=== PATIENT | female | born 1955 | race Caucasian/White ===

== ENCOUNTER 2022-12-28 13:19 | Emergency (ER) | payer MEDICARE, OTHER, SELFPAY ==
[2022-12-28] VITALS (8 sets, daily range): BP systolic 181–201; BP diastolic 91–105; PULSE 68–98; RESP 11–21; TEMP 36.7; O2SAT 94–100; BMI 19.6
--- NOTE | 2022-12-28 13:31 | ED.GENADULT ---
HPI - General Adult General Chief complaint: Syncope Stated complaint: passed out this am/legs tingeling Time Seen by Provider: 12/28/22 13:25 History of Present Illness HPI narrative: 67-year-old female nonsmoker with history of cervical spinal issues and radicular symptoms affecting her right arm presents with many months of dizziness. She states that she presents today because she was dizzy earlier and felt like she almost passed out. She admits that she has a hard time at home and probably does not eat and drink enough. She states that she has a hard time preparing food for herself. She denies suicidal or homicidal ideations. She is in the process of trying to connect with the primary care provider and is hoping that she can see who her son sees (Yani). She denies any obvious positional element to her dizziness, no recent trauma or injury, no fever or chills. She denies nausea, vomiting or diarrhea. She denies chest pain or shortness of breath. She states this has been going on for quite some time, she denies any new meds or dietary change. Related Data Previous Rx's Medication Instructions Recorded amlodipine 5 mg tablet 5 mg PO DAILY #30 tabs 12/28/22 Review of Systems Review of Systems Narrative: GENERAL: Denies chills, fatigue, malaise, fever, sweats. HEENT: Denies sinus pain, ear pain, sore throat, difficulty swallowing, dizziness. RESPIRATORY: Denies dyspnea, cough, wheezing, hemoptysis, sputum. CARDIOVASCULAR: See HPI GASTROINTESTINAL: Denies nausea, vomiting, abdominal pain, diarrhea, constipation, melena. : Denies dysuria, frequency, incontinence, hematuria, urinary retention. MUSCULOSKELETAL: denies weakness, joint pain, or bony pain SKIN: Denies rash, skin lesions, or other NEUROLOGIC: See HPI PSYCHIATRIC: No concerning psychosocial issues. 12 point review of systems is negative except for those stated above Exam Narrative Exam Narrative: GENERAL: [67] year old patient appears stated age. Well-developed patient, in mild distress. Anxious, somewhat tearful HEAD: Atraumatic. Normocephalic. EYES: Pupils equal round and reactive. Extraocular motions intact. No scleral icterus. No injection or drainage. ENT: Nose without bleeding, purulent drainage. Throat without erythema, tonsillar hypertrophy or exudate. Airway patent. NECK: Trachea midline. Non tender CARDIOVASCULAR: Regular rate and rhythm without murmurs, gallops, or rubs. RESPIRATORY: Clear to auscultation. Breath sounds equal bilaterally. No wheezes, rales, or rhonchi. GASTROINTESTINAL: Abdomen soft, non-tender, nondistended. EXTREMITIES: No edema or joint tenderness. Using sling on right upper extremity which was given to her for cervical radicular symptoms BACK: Nontender without deformity or crepitance. No flank tenderness. NEURO: AOx3. SKIN: No rash or erythema of visible areas Initial Vital Signs Initial Vital Signs: Vital Signs Pulse Oximetry 96 12/28/22 13:26 Course Orders Ordered: Discontinued Medications Sodium Chloride (Normal Saline 0.9%) 1,000 mls @ 1,000 mls/hr IV BOLUS ONE Stop: 12/28/22 14:32 Last Infusion: 12/28/22 15:18 Dose: 0 mls/hr Documented By: Admin: 12/28/22 13:56 Dose: 1,000 mls/hr Documented By: RAIN Vital Signs Vital signs: Vital Signs - 8 hr 12/28/22 13:30 Temperature 98.0 F Pulse Rate 92 H Respiratory Rate 16 Blood Pressure 201/100 H Pulse Oximetry 99 Oxygen Delivery Method Room Air Medical Decision Making Lab Data 12/28/22 13:46 12/28/22 13:46 Labs: Lab Results 12/28/22 12/28/22 12/28/22 Range/Units 13:46 13:46 13:46 WBC 6.4 (4.5-11.0) X10^3/uL RBC 4.50 (4.0-5.2) X10^6/uL Hgb 15.1 (12.0-16.0) g/dL Hct 43.9 (36-46) % MCV 97.7 (80-100) fL MCH 33.7 (26-34) PG MCHC 34.5 (30-36) % RDW 12.8 (11.6-14.8) % Plt Count 244 (150-400) X10^3/uL Neut % (Auto) 51.6 (50-75) % Lymph % (Auto) 41.4 H (25-40) % [place] % (Auto) 5.5 (3-14) % Eos % (Auto) 0.9 L (2-4) % Baso % (Auto) 0.6 (0-2) % Neut # (Auto) 3300 (1111-3369) /uL Lymph # (Auto) 2600 (0278-1261) /uL [place] # (Auto) 300 (0-900) /uL Eos # (Auto) 100 (0-450) /uL Baso # (Auto) 0 (0-100) /uL PT 10.1 (10.1-12.7) SECONDS INR 0.9 (0.9-1.3) APTT 28 (26-36) SECONDS Sodium 132 L (137-145) mmol/L Potassium 3.9 (3.4-5.1) mmol/L Chloride 101 (98-107) mmol/L Carbon Dioxide 22 (22-32) mmol/L BUN 12 (7-17) mg/dL Creatinine 0.70 (0.52-1.04) mg/dL Estimated GFR > 60 (>60) mL/min BUN/Creatinine Ratio 17.1 (6-22) Glucose 104 (80-110) mg/dL Calcium 10.1 (8.4-10.2) mg/dL Magnesium 2.0 (1.6-2.3) mg/dL Total Bilirubin 0.8 (0.2-1.3) mg/dL AST 24 (14-36) IU/L ALT 17 (<35) IU/L Alkaline Phosphatase 74 (38-126) U/L Total Creatine Kinase 38 (30-135) U/L Troponin I < 0.012 (0.01-0.034) ng/mL Total Protein 7.7 (6.3-8.2) g/dL Albumin 4.9 (3.5-5.0) g/dL Globulin 2.8 (1.7-4.1) g/dL Albumin/Globulin Ratio 1.8 (1.0-2.8) Lipase 44 (23-300) U/L [facility] Narrative Medical decision making narrative: [67] year old patient presents with chronic dizziness and near syncopal episode Multiple etiologies for patient's symptoms considered including, but not limited to: [Electrolyte disturbance versus dehydration versus malnutrition versus hypertension versus stroke versus other] Prior Charts reviewed in our EMR Primary Historian: patient Labs reviewed and interpreted by myself: No leukocytosis or left shift, no signs of anemia, electrolytes, renal function, LFTs and troponin all within normal Imaging reviewed: CT of the head without acute findings, C-spine without acute findings, chest x-ray demonstrates no acute findings Multiple diagnoses considered as noted above. Her history and physical exam are reassuring. Labs with no significant abnormal findings requiring specific intervention. She does feel better after fluids, orthostatics normal. We did discuss the potential involvement of blood pressure, she states that her blood pressure tends to run quite high and she has not been on medications because she also has episodes where it runs low, sometimes as low as the 80s or 90s. She has no headache or blurred vision. No signs of stroke exam, no abnormal findings on imaging. Patient appropriate for discharge Patient's symptoms improved over duration of stay with above-stated therapies. Findings and discharge diagnosis discussed with patient/family followed by verbalization of understanding Return precautions discussed with patient/family whom verbalize understanding of diagnosis and plan Discharge Plan Departure Patient Disposition: Home Clinical Impression: Dizziness, Cervical radiculopathy Instructions: DI for Dizziness-Nonvertigo Activity Restrictions/Additional Instructions: *You have been diagnosed with [chronic dizziness, hypertension] *What to do: *Please continue to take your regular medications as directed. [ ] New medication prescriptions sent to your pharmacy: [ ] x ] New medication written as a paper prescription [ ] No new medications given *Please follow up with your primary care provider in 2-3 days, call for an appointment. Let them know you were seen in the Emergency Department and that we ask that you be seen in follow up. We will electronically transmit a record of today's note if your PCP is in our system *If you do not have a primary care provider please contact the [facility] Resource line at [phone]. They will ask some questions about your medical history and help get you set up with a doctor in the community. *Return to Emergency Department if you should have any new, worsening or concerning symptoms, such as [fever greater than 101 F, shaking chills, worsening pain, persistent vomiting or other bothersome symptoms] Prescriptions: New amlodipine 5 mg tablet 5 mg PO DAILY Qty: 30 0RF Referrals: Kendall Lomeli MD [Physician] - Miscellaneous,MD Rubens [Primary Care Provider] - Stand Alone Forms: Patient Portal/API
--- NOTE | 2022-12-28 13:33 | DI.CT.S_ITS ---
PROCEDURE: CT HEAD/BRAIN WO CON INDICATIONS: dizzy, tingling TECHNIQUE: Noncontrast 4.5 mm thick angled axial sections acquired from the foramen magnum to the vertex, with coronal and sagittal reformats. For radiation dose reduction, the following was used: automated exposure control, adjustment of mA and/or kV according to patient size. COMPARISON: None. FINDINGS: Image quality: Excellent. CSF spaces: Basal cisterns are patent. No extra-axial fluid collections. Ventricles are normal in size and shape. Brain: No midline shift. No intracranial masses or hemorrhage. Boyle-white matter interface is normal. Skull and face: Calvarium and visualized facial bones are intact, without suspicious lesions. Sinuses: Visualized sinuses and mastoids are clear. IMPRESSION: No acute intracranial abnormality. Approved by: Haresh Ramirez M.D. on 12/28/2022 at 14:09
--- NOTE | 2022-12-28 13:33 | DI.CT.S_ITS ---
PROCEDURE: CT CERVICAL SPINE WO CON INDICATIONS: neck pain, possible injury TECHNIQUE: Noncontrast 3 mm thick sections acquired from the skull base to the T4 level. Sagittal and coronal reformats were then constructed. For radiation dose reduction, the following was used: automated exposure control, adjustment of mA and/or kV according to patient size. COMPARISON: None. FINDINGS: Image quality: Excellent. Bones: No acute fractures or dislocations. Visualized superior ribs are intact. Mild to moderate multilevel degenerative disc disease and facet and uncovertebral joint hypertrophy. Soft tissues: Prevertebral soft tissues are normal in thickness. No paravertebral hematomas. No apical pneumothoraces. IMPRESSION: No acute cervical spine fracture or subluxation. [id number] multilevel spondylosis. Approved by: Haresh Ramirez M.D. on 12/28/2022 at 14:11
--- NOTE | 2022-12-28 13:34 | DI.RAD.S_ITS ---
PROCEDURE: XR CHEST 1V INDICATIONS: dizzy weak TECHNIQUE: One view of the chest was acquired. COMPARISON: None. FINDINGS: Surgical changes and devices: None. Lungs and pleura: Lungs are clear. No pleural effusions or pneumothorax. Mediastinum: Mediastinal contours appear normal. Heart size is normal. Bones and chest wall: No suspicious bony lesions. Overlying soft tissues appear unremarkable. IMPRESSION: No acute cardiopulmonary abnormality. Approved by: Haresh Ramirez M.D. on 12/28/2022 at 14:35
[2022-12-28 13:50] LABS: Add Manual Diff / Slide Review NO; Basophils Absolute Auto 0 /uL (0-100); Basophils Percent Auto 0.6 % (0-2); Eosinophils Absolute Auto 100 /uL (0-450); Eosinophils Percent Auto 0.9 % (2-4); Hematocrit 43.9 % (36-46); Hemoglobin 15.1 g/dL (12.0-16.0); Lymphocytes Absolute Auto 2600 /uL (1100-4500); Lymphocytes Percent Auto 41.4 % (25-40); Mean Corpuscular HGB Conc 34.5 % (30-36); Mean Corpuscular Hemoglobin 33.7 PG (26-34); Mean Corpuscular Volume 97.7 fL (80-100); Monocytes Absolute Auto 300 /uL (0-900); Monocytes Percent Auto 5.5 % (3-14); Neutrophils Absolute Auto 3300 /uL (1500-7000); Neutrophils Percent Auto 51.6 % (50-75); Platelet Count 244 X10^3/uL (150-400); Red Cell Distribution Width 12.8 % (11.6-14.8); White Blood Cell Count 6.4 X10^3/uL (4.5-11.0)
[2022-12-28] MEDS: SODIUM CHLORIDE 0.9% 1,000 ML 1000 ML IV (13:56)
[2022-12-28 13:57] LABS: INR 0.9 (0.9-1.3); Prothrombin Time 10.1 SECONDS (10.1-12.7)
[2022-12-28 13:59] LABS: PTT Partial Thromboplastin Tim 28 SECONDS (26-36)
[2022-12-28 14:00] LABS: Alanine Aminotransferase 17 IU/L (<35); Albumin 4.9 g/dL (3.5-5.0); Albumin Globulin Ratio 1.8 (1.0-2.8); Alkaline Phosphatase 74 U/L (38-126); Aspartate Aminotransferase 24 IU/L (14-36); BUN Creatinine Ratio 17.1 (6-22); Bilirubin Total 0.8 mg/dL (0.2-1.3); Blood Urea Nitrogen 12 mg/dL (7-17); Calcium 10.1 mg/dL (8.4-10.2); Carbon Dioxide 22 mmol/L (22-32); Chloride 101 mmol/L (98-107); Creatine Kinase 38 U/L (30-135); Estimated Glomerular Filt Rate > 60 mL/min (>60); Globulin 2.8 g/dL (1.7-4.1); Glucose 104 mg/dL (80-110); HEMOLYSIS < 15 (0-50); Lipase 44 U/L (23-300); Potassium 3.9 mmol/L (3.4-5.1); Sodium 132 mmol/L (137-145); Total Protein 7.7 g/dL (6.3-8.2)
[2022-12-28 14:12] LABS: Troponin I < 0.012 ng/mL (0.01-0.034)
--- NOTE | 2022-12-28 14:58 | CM.SWNOTE ---
ED LOOM FIXER Note LOOM FIXER receives consult from ED provider and RN due to concern for patient's anxiety and need for PCP. Patient is 67 y/o female who presents to the ED due to concern for dizziness and weakness. family resource management professor and ED provider endorse that patient presented with anxiety and inability to report chief complaint. LOOM FIXER enters room to meet with patient. Patient presents as A/Ox4, calm, cooperative and euthymic. Patient endorses she moved here to be close to family and recently moved from [place]. Patient endorses she had to move from [place] suddenly when her home sold quickly, patient endorses she currently rents a home in [place]. Patient endorses her son does not help her as much as she thought he would and is considering moving back to [place] to be close to her other son. Patient endorses she would have a good housing situation set up in [place]. Patient endorses prior to moving she had to cancel a neck/disc fusion procedure. Patient states she has not established PCP care here yet but her son sees Dr. Lomeli. Patient endorses concern that she felt weakness and dizziness when grocery shopping and states she is eating less fruits and vegetables lately. Patient endorses she takes vitamins to supplement this. LOOM FIXER offers to assist in establishing care with PCP for patient. Patient endorses she is going to decide soon if she going to move and may move back to [place]. LOOM FIXER provides phone number for patient if patient decides to stay in the area and needs a PCP. Patient denies any further needs from LOOM FIXER. Plan: patient to d/c to home upon medical clearance. Beth Unger, FIRST [employer]
--- NOTE | 2022-12-28 15:12 | PC.NURSE ---
Patient states she is sleeping on the floor in her living room of her rental, due to weird smells in the other room. Pt usually gets up slowly due to left knee previous injury, and right arm in a sling from cervical issues previously. When she stood she tried to steady herself on a chair and felt dizzy, room spinning, vision went black and she fell onto the carpeted floor. She denies hitting her head or being on blood thinners, denies new injuries from dizziness episode today. Pt states previously had similar symptoms to which she saw physical therapy for, however they did not treat her for the vertigo at physical therapy. She is being let go from her lease due to issues with the rental, causing a lot of stress for her. Pt moved here after her son encouraged her to move closer, however says he seems to be ignoring her. I encouraged patient to talk with her son about her concerns, patient did not respond to this. Patient feeling better now and denies currently feeling nauseous, stating it comes and goes.
== END 2022-12-28 15:35 | disposition home or self-care (01) ==
PROVIDERS: Emergency Provider Emergency Medicine
DX: R42 Dizziness and giddiness (principal); M54.12 Radiculopathy, cervical region
CPT/HCPCS: 36415; 70450; 71045; 72125; 80053; 82550; 83690; 83735; 84484; 85025; 85610; 85730; 93005; 96360; 99284

== ENCOUNTER → 2023-02-20 14:20 | Outpatient (CLI) | payer MEDICARE, OTHER, SELFPAY | PROVIDERS: Visit Provider Nurse Practitioner Family | DX: R30.0 Dysuria (principal) | CPT/HCPCS: 87086; 87210 ==

== ENCOUNTER 2024-03-06 13:57 | Emergency (ER) | payer MEDICARE, OTHER, SELFPAY ==
[2024-03-06] VITALS (8 sets, daily range): BP systolic 161–190; BP diastolic 86–114; PULSE 60–73; RESP 16–27; TEMP 37.3; O2SAT 96–98; BMI 18.8
--- NOTE | 2024-03-06 14:25 | DI.RAD.S_ITS ---
PROCEDURE: XR CHEST 1V INDICATIONS: chest pain TECHNIQUE: One view of the chest was acquired. COMPARISON: [facility], CR, XR CHEST 1V, 12/28/2022, 13:38. FINDINGS: Surgical changes and devices: None. Lungs and pleura: Lungs are clear. No pleural effusions or pneumothorax. Mediastinum: Mediastinal contours appear normal. Heart size is normal. Bones and chest wall: No suspicious bony lesions. Overlying soft tissues appear unremarkable. IMPRESSION: No acute cardiopulmonary abnormality is seen. Dictated by: Kristian Mcgovern M.D. on 03/06/2024 at 15:26 Approved by: Kristian Mcgovern M.D. on 03/06/2024 at 15:26
--- NOTE | 2024-03-06 15:32 | EKG_ITS ---
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
[2024-03-06 15:43] LABS: Add Manual Diff / Slide Review NO; Basophils Absolute Auto 0 /uL (0-100); Basophils Percent Auto 0.5 % (0-2); Eosinophils Absolute Auto 100 /uL (0-450); Eosinophils Percent Auto 1.2 % (2-4); Hematocrit 41.3 % (36-46); Hemoglobin 13.9 g/dL (12.0-16.0); Lymphocytes Absolute Auto 2100 /uL (1100-4500); Lymphocytes Percent Auto 37.5 % (25-40); Mean Corpuscular HGB Conc 33.6 % (30-36); Monocytes Absolute Auto 300 /uL (0-900); Monocytes Percent Auto 5.4 % (3-14); Neutrophils Absolute Auto 3100 /uL (1500-7000); Neutrophils Percent Auto 55.4 % (50-75); Platelet Count 243 X10^3/uL (150-400); Red Blood Cell Count 4.09 X10^6/uL (4.0-5.2); Red Cell Distribution Width 12.7 % (11.6-14.8); White Blood Cell Count 5.6 X10^3/uL (4.5-11.0)
[2024-03-06 15:45] LABS: Prothrombin Time 11.1 SECONDS (9.4-12.5)
[2024-03-06 15:47] LABS: PTT Partial Thromboplastin Tim 30 SECONDS (25.1-36.5)
[2024-03-06 15:49] LABS: Alanine Aminotransferase 21 IU/L (<35); Albumin 4.2 g/dL (3.5-5.0); Albumin Globulin Ratio 1.6 (1.0-2.8); Alkaline Phosphatase 62 U/L (38-126); Aspartate Aminotransferase 27 IU/L (14-36); BUN Creatinine Ratio 12.3 (6-22); Bilirubin Total 0.7 mg/dL (0.2-1.3); Blood Urea Nitrogen 8 mg/dL (7-17); Calcium 9.4 mg/dL (8.4-10.2); Carbon Dioxide 26 mmol/L (22-32); Chloride 100 mmol/L (98-107); Creatine Kinase 75 U/L (30-135); Estimated Glomerular Filt Rate > 60 mL/min (>60); Globulin 2.6 g/dL (1.7-4.1); Glucose 100 mg/dL (80-110); HEMOLYSIS < 15 (0-50); Lipase 38 U/L (23-300); Magnesium 1.8 mg/dL (1.6-2.3); Potassium 4.2 mmol/L (3.4-5.1); Sodium 131 mmol/L (137-145); Total Protein 6.8 g/dL (6.3-8.2)
[2024-03-06 16:01] LABS: NT-proBNP (BNP-Adult 18+) 510 pg/mL (<125); Troponin I < 0.012 ng/mL (0.01-0.034)
--- NOTE | 2024-03-06 19:18 | ED.ARRPALP ---
HPI - Arrhythmia/Palpitations General Chief Complaint: Arrhythmia/Palpitations Stated Complaint: BPM below 50 then rises to 108 walking, HBP Time Seen by Provider: 03/06/24 19:18 History of Present Illness HPI narrative: Patient is a 69-year-old female history of hypertension, syncope, comes into the ED for evaluation of weakness, low and high heart rate, she states that she has been having difficulty controlling her blood pressure with her emissions testing and repair technician therefore they have been changing a lot of her medications recently, states that she has doubled her carvedilol proximally 1 week ago and states that she is now noticing that her heart rate will be low then go high and it is well as increased weakness but denies any actual chest pain shortness of breath fever chills nausea vomiting abdominal pain or any other GI/ symptoms time. No trauma no falls. Related Data Previous Rx's Medication Instructions Recorded amlodipine 5 mg tablet 5 mg PO DAILY #30 tabs 12/28/22 Allergies Allergy/AdvReac Type Severity Reaction Status Date / Time No Known Drug Allergies Allergy Unverified 02/20/23 14:02 Review of Systems Review of Systems Narrative: General: Positive generalized weakness, Denies fever, chills, weight loss HEENT: Denies headache, eye drainage, eye irritation, head trauma, sore throat, voice change Cardiovascular: Denies any chest pain, palpitations, shortness of breath, tachycardia Respiratory: Denies any shortness of breath, cough, wheeze, stridor GI/: Denies any abdominal pain, nausea, vomiting, diarrhea, bright red blood per rectum, melanotic stools, urinary frequency, urinary retention, dysuria, hematuria MSK: Denies any joint pain, muscle pains, swelling Skin: Denies any rashes, lesions, discoloration Neuro: Denies any headache, lightheadedness, dizziness, fainting, weakness Psych: Denies SI/HI Patient History Social History Smoking Status: Never smoker Smoking Status: Never smoker Exam Narrative Exam Narrative: General: Cooperative, comfortable, well-developed, not in acute distress HEENT: Normocephalic, atraumatic, PERRLA, normal sclera, eyelids normal, Neck: Active full range of motion, atraumatic Chest: Normal to inspection, negative crepitus, no overlying erythema ecchymosis Respiratory: Normal respiratory effort, not in acute respiratory distress, clear to auscultation bilaterally negative cough, wheeze, tachypnea, rhonchi, rales Cardiology: Regular rate rhythm negative gallop, murmur, rubs GI/: Normal to inspection, soft, nonrigid, no tenderness to palpation, exam deferred MSK: Full range of active range of motion of all 4 extremities, atraumatic Skin: No rashes lesions noted Neuro: Alert awake oriented x3, moves all 4 extremities spontaneously, cranial nerves intact, able to answer all questions appropriately follows commands appropriately Psych: Cooperative, negative suicidal or homicidal ideations Initial Vital Signs Initial Vital Signs: Vital Signs Temperature 99.1 F 03/06/24 14:18 Pulse Rate 73 03/06/24 14:18 Respiratory Rate 16 03/06/24 14:18 Blood Pressure 183/106 H 03/06/24 14:18 Pulse Oximetry 97 03/06/24 14:18 Oxygen Delivery Method Room Air 03/06/24 14:18 Course Orders Ordered: ED Orders 03/06/24 14:25 XR chest 1V Stat EKG-12 Lead Stat 03/06/24 15:25 Complete Blood Count AUTO DIFF Stat Comprehensive Metabolic Panel Stat Lipase Stat Magnesium Stat NT-proBNP (BNP-Adult 18+) Stat PTT Partial Thromboplastin Saran Stat Prothrombin Time INR Stat Troponin & CK Cardiac Panel Stat Vital Signs Vital signs: Vital Signs - 8 hr 03/06/24 14:18 03/06/24 17:16 03/06/24 17:17 Temperature 99.1 F Pulse Rate 73 71 71 Respiratory Rate 16 Blood Pressure 183/106 H Pulse Oximetry 97 97 98 Oxygen Delivery Method Room Air 03/06/24 17:17 03/06/24 17:30 03/06/24 17:30 Temperature Pulse Rate 69 69 Respiratory Rate 27 H 20 Blood Pressure 190/114 H 176/97 H Pulse Oximetry 97 97 Oxygen Delivery Method Room Air Room Air 03/06/24 17:30 03/06/24 18:00 03/06/24 18:00 Temperature Pulse Rate 67 Respiratory Rate 27 H Blood Pressure 176/97 H 161/86 H Pulse Oximetry 98 Oxygen Delivery Method 03/06/24 18:30 03/06/24 18:30 Temperature Pulse Rate 66 Respiratory Rate 23 Blood Pressure 178/90 H Pulse Oximetry 96 Oxygen Delivery Method MDM - Arrhythmia/Palpitations Differential Diagnosis Differential diagnosis: Likely palpitations, artial fibrillation, artial flutter and other (Electrolyte abnormality) Lab Data 03/06/24 15:25 03/06/24 15:25 Labs: Lab Results 03/06/24 Range/Units 15:25 WBC 5.6 (4.5-11.0) X10^3/uL RBC 4.09 (4.0-5.2) X10^6/uL Hgb 13.9 (12.0-16.0) g/dL Hct 41.3 (36-46) % MCV 101.0 H (80-100) fL MCH 34.0 (26-34) PG MCHC 33.6 (30-36) % RDW 12.7 (11.6-14.8) % Plt Count 243 (150-400) X10^3/uL Neut % (Auto) 55.4 (50-75) % Lymph % (Auto) 37.5 (25-40) % [place] % (Auto) 5.4 (3-14) % Eos % (Auto) 1.2 L (2-4) % Baso % (Auto) 0.5 (0-2) % Neut # (Auto) 3100 (1939-2530) /uL Lymph # (Auto) 2100 (8308-0211) /uL [place] # (Auto) 300 (0-900) /uL Eos # (Auto) 100 (0-450) /uL Baso # (Auto) 0 (0-100) /uL PT 11.1 (9.4-12.5) SECONDS INR 1.0 (0.9-1.3) APTT 30 (25.1-36.5) SECONDS Sodium 131 L (137-145) mmol/L Potassium 4.2 (3.4-5.1) mmol/L Chloride 100 (98-107) mmol/L Carbon Dioxide 26 (22-32) mmol/L BUN 8 (7-17) mg/dL Creatinine 0.65 (0.52-1.04) mg/dL Estimated GFR > 60 (>60) mL/min BUN/Creatinine Ratio 12.3 (6-22) Glucose 100 (80-110) mg/dL Calcium 9.4 (8.4-10.2) mg/dL Magnesium 1.8 (1.6-2.3) mg/dL Total Bilirubin 0.7 (0.2-1.3) mg/dL AST 27 (14-36) IU/L ALT 21 (<35) IU/L Alkaline Phosphatase 62 (38-126) U/L Total Creatine Kinase 75 (30-135) U/L Troponin I < 0.012 (0.01-0.034) ng/mL NT-Pro-B Natriuret Pep 510 H (<125) pg/mL Total Protein 6.8 (6.3-8.2) g/dL Albumin 4.2 (3.5-5.0) g/dL Globulin 2.6 (1.7-4.1) g/dL Albumin/Globulin Ratio 1.6 (1.0-2.8) Lipase 38 (23-300) U/L Imaging Data Chest x-ray: Radiologist's Impresson: [address] [address] XRay Report Signed Patient: Deanna Gary MR#: [id number] : 1955 Acct:[id number] Age/Sex: 69 / F Date of Service: 03/06/24 Loc: ED Accession Number: [id number] Procedure: XR chest 1V Ordering Provider: Selam Groves D.O. PROCEDURE: XR CHEST 1V INDICATIONS: chest pain TECHNIQUE: One view of the chest was acquired. COMPARISON: [facility], , XR CHEST 1V, 12/28/2022, 13:38. FINDINGS: Surgical changes and devices: None. Lungs and pleura: Lungs are clear. No pleural effusions or pneumothorax. Mediastinum: Mediastinal contours appear normal. Heart size is normal. Bones and chest wall: No suspicious bony lesions. Overlying soft tissues appear unremarkable. IMPRESSION: No acute cardiopulmonary abnormality is seen. ECG Data Interpretation: EKG interpreted ED physician sinuses 64 beats per minute QTC 412, normal axis, nonspecific ST changes no STEMI MDM Narrative Medical decision making narrative: Patient is a 69-year-old female with a history of difficulty to control chronic hypertension comes into the ED from home for evaluation of multiple complaints. She states that about a week ago she her carvedilol doubled, still on losartan, this was changed by her emissions testing and repair technician, she states that over the past several weeks/months they have been changing her high blood pressure medications and she feels like her weakness has worsened over the past week. She denies any syncopal or presyncopal symptoms denies any trauma or falls. She denies any other symptoms at this time. Patient without any acute findings on imaging, lab work, EKG nonischemic. Patient's symptoms more likely secondary to adjustment in her carvedilol. Patient was given strict return precautions she verbalized understanding of this and agrees to being discharged home with outpatient follow up. To follow up with primary care and Cardiology. Discharge Plan Departure Patient Disposition: Home Clinical Impression: Palpitations Activity Restrictions/Additional Instructions: Follow up with emissions testing and repair technician and PCP Please read the discharge instructions sheet carefully and bring all papers to all doctor follow-up visits, as it may contain information that your doctor may want to see. Disease processes change and evolve, if your symptoms worsen or if you develop any new symptoms that are concerning to you please return for evaluation. Your evaluation today does not show any evidence of any life-threatening/serious illnesses requiring admission to the hospital or surgery. Please follow-up with your doctor for re-evaluation in approximately 1 day. Seek immediate medical attention for any worrisome symptoms. Prescriptions: No Action amlodipine 5 mg tablet 5 mg PO DAILY Qty: 30 0RF Referrals: Miscellaneous,Doctor, [Primary Care Provider] - Stand Alone Forms: Patient Portal/API/Survey
== END 2024-03-06 19:45 | disposition home or self-care (01) ==
PROVIDERS: Emergency Medicine; Emergency Provider Student in an Organized Health Care Education/Training Program
DX: R00.2 Palpitations (principal); R07.9 Chest pain, unspecified
CPT/HCPCS: 36415; 71045; 80053; 82550; 83690; 83735; 83880; 84484; 85025; 85610; 85730; 93005; 93010; 99283; 99284

== ENCOUNTER → 2024-03-21 11:33 | Outpatient (CLI) | payer MEDICARE, OTHER, SELFPAY | PROVIDERS: Visit Provider Nurse Practitioner Family | DX: R30.0 Dysuria (principal) | CPT/HCPCS: 87086; 87210 ==

== ENCOUNTER 2024-06-04 13:00 | Emergency (ER) | payer MEDICARE, OTHER, SELFPAY ==
[2024-06-04] VITALS (7 sets, daily range): BP systolic 122–189; BP diastolic 70–92; PULSE 63–74; RESP 16–22; TEMP 37.2; O2SAT 97–100; BMI 19.5
--- NOTE | 2024-06-04 13:17 | DI.RAD.S_ITS ---
PROCEDURE: XR CHEST 1V INDICATIONS: chest pain TECHNIQUE: One view of the chest was acquired. COMPARISON: [facility], CR, XR CHEST 1V, 03/06/2024, 14:29. FINDINGS: Surgical changes and devices: None. Lungs and pleura: Lungs are clear. No pleural effusions or pneumothorax. Mediastinum: Mediastinal contours appear normal. Heart size is normal. Bones and chest wall: No suspicious bony lesions. Overlying soft tissues appear unremarkable. IMPRESSION: No acute cardiopulmonary abnormality is seen. Dictated by: Bandar Serrano M.D. on 06/04/2024 at 13:43 Approved by: Bandar Serrano M.D. on 06/04/2024 at 13:45
--- NOTE | 2024-06-04 13:26 | EKG_ITS ---
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
[2024-06-04 13:54] LABS: Add Manual Diff / Slide Review NO; Basophils Absolute Auto 100 /uL (0-100); Basophils Percent Auto 0.7 % (0-2); Eosinophils Absolute Auto 200 /uL (0-450); Eosinophils Percent Auto 2.9 % (2-4); Hematocrit 41.4 % (36-46); Lymphocytes Absolute Auto 3100 /uL (1100-4500); Lymphocytes Percent Auto 43.9 % (25-40); Mean Corpuscular HGB Conc 33.9 % (30-36); Mean Corpuscular Hemoglobin 33.2 PG (26-34); Mean Corpuscular Volume 97.8 fL (80-100); Monocytes Absolute Auto 500 /uL (0-900); Monocytes Percent Auto 6.6 % (3-14); Neutrophils Absolute Auto 3200 /uL (1500-7000); Neutrophils Percent Auto 45.9 % (50-75); Platelet Count 281 X10^3/uL (150-400); Red Blood Cell Count 4.23 X10^6/uL (4.0-5.2); Red Cell Distribution Width 13.2 % (11.6-14.8); White Blood Cell Count 7.1 X10^3/uL (4.5-11.0)
[2024-06-04 13:59] LABS: INR 0.9 (0.9-1.3); Prothrombin Time 10.1 SECONDS (9.4-12.5)
[2024-06-04 14:01] LABS: PTT Partial Thromboplastin Tim 28 SECONDS (25.1-36.5)
[2024-06-04 14:07] LABS: Alanine Aminotransferase 20 IU/L (<35); Albumin 4.6 g/dL (3.5-5.0); Albumin Globulin Ratio 1.7 (1.0-2.8); Alkaline Phosphatase 69 U/L (38-126); Aspartate Aminotransferase 31 IU/L (14-36); BUN Creatinine Ratio 25.4 (6-22); Bilirubin Total 0.4 mg/dL (0.2-1.3); Blood Urea Nitrogen 17 mg/dL (7-17); Calcium 9.8 mg/dL (8.4-10.2); Carbon Dioxide 21 mmol/L (22-32); Chloride 102 mmol/L (98-107); Creatine Kinase 43 U/L (30-135); Estimated Glomerular Filt Rate > 60 mL/min (>60); Globulin 2.7 g/dL (1.7-4.1); Glucose 97 mg/dL (80-110); HEMOLYSIS < 15 (0-50); Lipase 189 U/L (23-300); Magnesium 2.1 mg/dL (1.6-2.3); Potassium 3.9 mmol/L (3.4-5.1); Sodium 132 mmol/L (137-145); Total Protein 7.3 g/dL (6.3-8.2)
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
[2024-06-04 14:19] LABS: NT-proBNP (BNP-Adult 18+) 113 pg/mL (<125); Troponin I < 0.012 ng/mL (0.01-0.034)
--- NOTE | 2024-06-04 15:14 | DI.CT.S_ITS ---
PROCEDURE: CT CERVICAL SPINE WO CON INDICATIONS: neck pain, radiates down arm, acute on chronic TECHNIQUE: Noncontrast 3 mm thick sections acquired from the skull base to the T4 level. Sagittal and coronal reformats were then constructed. For radiation dose reduction, the following was used: automated exposure control, adjustment of mA and/or kV according to patient size. COMPARISON: [facility], CT, CT CERVICAL SPINE WO CON, 12/28/2022, 13:51. FINDINGS: Image quality: Diagnostic Bones: Reversal of the normal cervical lordosis. Trace anterolisthesis of C4 on C5 is similar to prior, likely degenerative. No traumatic subluxation. No acute vertebral body height loss. Vyqn-dp-uvsqyuhy spondylotic changes with osteophytes, arthropathy, disc space height loss. Soft tissues: Prevertebral soft tissues within normal limits. No apical pneumothorax. IMPRESSION: No displaced fracture or traumatic subluxation. Background kajk-uc-fovxfuhz spondylosis. Reversal of the normal cervical lordosis. If there is high concern for further derangement, consider MRI evaluation. Dictated by: Emiliano Ornelas M.D. on 06/04/2024 at 15:50 Approved by: Emiliano Ornelas M.D. on 06/04/2024 at 15:51
--- NOTE | 2024-06-04 15:14 | DI.CT.S_ITS ---
PROCEDURE: CT HEAD/BRAIN WO CON INDICATIONS: neck pain, radiates down arm, acute on chronic TECHNIQUE: Noncontrast 4.5 mm thick angled axial sections acquired from the foramen magnum to the vertex, with coronal and sagittal reformats. For radiation dose reduction, the following was used: automated exposure control, adjustment of mA and/or kV according to patient size. COMPARISON: [facility], CT, CT HEAD/BRAIN WO CON, 12/28/2022, 13:51. FINDINGS: Image quality: Diagnostic CSF spaces: Basal cisterns are patent. Lateral ventricles are symmetric. Volume: Vascular calcifications. Periventricular white matter disease is commonly seen with chronic microangiopathy. Volume loss is present. These findings are mild Brain: No acute hemorrhage or gross loss of tse-white differentiation Craniofacial structures: Partially empty sella. No significant paranasal sinus opacity IMPRESSION: No acute intracranial pathology. Dictated by: Emiliano Ornelas M.D. on 06/04/2024 at 15:46 Approved by: Emiliano Ornelas M.D. on 06/04/2024 at 15:47
[2024-06-04] MEDS: KETOROLAC 30 MG/ML VIAL 15 MG IV (15:24)
[2024-06-04] MEDS: diazePAM 5 MG TABLET PO (15:25)
[2024-06-04] MEDS: ACETAMINOPHEN 325 MG TABLET 975 MG PO (15:25)
--- NOTE | 2024-06-04 15:54 | EKG_ITS ---
[address] [address] Test Date: 2024-06-04 Pat Name: Deanna Gary Department: Room: Gender: Female Home Care Nurse: JASMINA : 1955 Requested By: Order Number: [id number] Reading MD: Brian Awan Measurements Intervals [place] Rate: 71 P: 48 IA: 154 QRS: -1 QRSD: 84 T: 25 QT: 428 QTc: 465 Interpretive Statements Normal sinus rhythm Possible Left atrial enlargement Electronically Signed On 06-05-2024 16:24:57 PST by Brian Awan
[2024-06-04 17:04] LABS: Troponin I < 0.012 ng/mL (0.01-0.034)
[2024-06-04] MEDS: LOPERAMIDE 2 MG CAPSULE PO (17:42)
--- NOTE | 2024-06-04 17:43 | CM.SWNOTE ---
ED WASHTUB WORKER HELPER Note WASHTUB WORKER HELPER receives consult due to patient's concern for access to resources. Patient is 69 y/o female who presents to ED due to concern for chest, patient was sent by PCP and had brief appt with PCP today. Patient's PCP is Ingrid Cummings. Patient has medicare insurance. Patient has hx of hypertension, dyslipidemia, PTSD, depression, anxiety, & osteoporosis WASHTUB WORKER HELPER enters room to meet with patient, patient presents as A/Ox4. Patient recently moved to the area from [place]. Patient states she has been here since February. Patient states she drove self here, patient states she has safe environment to live. Patient endorses that she has been in a lot of pain and grocery shopping has been difficult. Patient has son in the area but he has been a limited support. Patient states that PCP put in a [facility]iat[facility] referral and patient is currently seeing psychiatrist from [place] via telehealth but it is reported by that provider to patient that patient needs to seek local outpatient services. WASHTUB WORKER HELPER contacts patient PCP office regarding ED f/u appt and status of patient's [facility] referral. WASHTUB WORKER HELPER provides patient with lists of other providers that accept her insurance. WASHTUB WORKER HELPER discusses meals on wheals referral, WASHTUB WORKER HELPER is unable to complete referral as the VM box is full and it is after business hours. WASHTUB WORKER HELPER provides patient with senior resource guide and identifies the phone number patient can call to self refer. Plan: patient to d/c to home upon medical clearance, patient to f/u with outpatient providers, PCP to f/u with patient. Patient to f/u with resources provided. PRABHU LoyaSW
== END 2024-06-04 17:49 | disposition home or self-care (01) ==
PROVIDERS: Emergency Provider Emergency Medicine; PCP Nurse Practitioner Family
DX: M54.12 Radiculopathy, cervical region (principal); R06.02 Shortness of breath; M79.602 Pain in left arm
CPT/HCPCS: 36415; 70450; 71045; 72125; 80053; 82550; 83690; 83735; 83880; 84484; 85025; 85610; 85730; 93005; 96374; 99284; J1885

== ENCOUNTER 2024-06-25 17:52 | Emergency (ER) | payer MEDICARE, OTHER, SELFPAY ==
[2024-06-25] VITALS (11 sets, daily range): BP systolic 134–173; BP diastolic 55–97; PULSE 78–90; RESP 12–21; TEMP 36.6–36.9; O2SAT 95–98; BMI 23.3
--- NOTE | 2024-06-25 17:58 | DI.CT.S_ITS ---
PROCEDURE: CT TRAUMA CHEST ABDOMEN PELVIS INDICATIONS: Trauma. TECHNIQUE: MDCT axial chest images were obtained with IV contrast in the arterial phase. Maximum intensity projections and multiplanar reformats were obtained. MDCT axial abdomen and pelvis images were obtained with IV contrast in the portal venous phase. Multiplanar reformats were obtained. Optional delayed phase scanning may also be obtained Advanced techniques were used to lower patient radiation exposure. COMPARISON: [facility], CT, CT CERVICAL SPINE WO CON, 06/25/2024, 18:06. FINDINGS Image Quality: Diagnostic. Chest: Lungs and pleura: No pneumothorax or hemothorax. No pulmonary contusions or lacerations. No solid pulmonary nodule requiring follow-up. Mild emphysematous change. Vascular: No dissection or pseudoaneurysm. No incidental central pulmonary embolism. No hemopericardium. Mediastinum: No mediastinum hematoma. No suspicious mass or lymph nodes. No actionable thyroid nodules. Chest wall: Intact clavicles, scapula, and glenohumeral joint. No displaced rib fractures. Thoracic spine: No acute fracture or traumatic subluxation. ABDOMEN and PELVIS: Liver: No laceration or capsular hematoma. Gallbladder: Unremarkable. Biliary system: Non-dilated. Pancreas: Unremarkable. Spleen: No laceration or capsular hematoma. Adrenals: No suspicious nodules. Kidneys: No contrast extravasation or hydronephrosis. No solid masses. Nonobstructing left kidney stone measuring 0.8 cm. Vessels and lymph nodes: No pathology lymph nodes by size criteria. No dissection or aneurysm. No retroperitoneal hematoma. Bowel and peritoneum: No suspicious region of mesenteric hemorrhage or hemoperitoneum. No bowel obstruction. Normal appendix. Pelvis: Unremarkable bladder. Retroverted uterus. Pelvic ring and femurs: No pelvic ring disruption. No hip fractures. Lumbar spine: No acute fracture or traumatic subluxation. Abdominal wall: No drainable fluid collection or hematoma. Mass or cyst at the right labia majora measuring 2.7 cm, (). IMPRESSION: 1. No acute traumatic injury to the chest, abdomen, or pelvis. 2. Nonobstructing left kidney stone measuring 0.8 cm. 3. Mass or cyst at the right labia majora measuring 2.7 cm. -Recommend clinical correlation. This could be further evaluated with MRI pelvis with IV contrast (gynecologic protocol). Dictated by: Morgan Nuñez M.D. on 06/25/2024 at 19:18 Approved by: Morgan Nuñez M.D. on 06/25/2024 at 19:28
--- NOTE | 2024-06-25 17:58 | DI.CT.S_ITS ---
PROCEDURE: CT CERVICAL SPINE WO CON INDICATIONS: fall TECHNIQUE: Noncontrast 3 mm thick sections acquired from the skull base to the T4 level. Sagittal and coronal reformats were then constructed. For radiation dose reduction, the following was used: automated exposure control, adjustment of mA and/or kV according to patient size. COMPARISON: [facility], CT, CT CERVICAL SPINE WO CON, 06/04/2024, 15:32. FINDINGS: Image quality: Excellent. Bones: No fractures or dislocations. Visualized superior ribs are intact. Pgid-tn-zeqowuuk degenerative changes. Soft tissues: Prevertebral soft tissues are normal in thickness. No paravertebral hematomas. No apical pneumothoraces. IMPRESSION: No displaced fracture or traumatic subluxation. Dictated by: Morgan Nuñez M.D. on 06/25/2024 at 19:15 Approved by: Morgan Nuñez M.D. on 06/25/2024 at 19:17
--- NOTE | 2024-06-25 17:59 | DI.CT.S_ITS ---
PROCEDURE: CT HEAD/BRAIN WO CON INDICATIONS: fall, retrograde amnesia TECHNIQUE: Noncontrast 4.5 mm thick angled axial sections acquired from the foramen magnum to the vertex, with coronal and sagittal reformats. For radiation dose reduction, the following was used: automated exposure control, adjustment of mA and/or kV according to patient size. COMPARISON: [facility], CT, CT HEAD/BRAIN WO CON, 06/04/2024, 15:32. FINDINGS: Image quality: Diagnostic. CSF spaces: Basal cisterns are patent. No extra-axial fluid collections. Ventricles are normal in size and shape. Brain: No midline shift. No intracranial masses or hemorrhage. No area of hypodensity in a large vascular distribution to suggest acute infarction. Periventricular hypodensity consistent with chronic microvascular ischemic change. Age-related parenchymal loss. Skull and face: Calvarium and visualized facial bones are intact, without suspicious lesions. Sinuses: Visualized sinuses and mastoids are clear. IMPRESSION: No acute intracranial pathology. Dictated by: Morgan Nuñez M.D. on 06/25/2024 at 19:12 Approved by: Morgan Nuñez M.D. on 06/25/2024 at 19:15
--- NOTE | 2024-06-25 18:05 | ED_ITS ---
HPI - General Adult General Chief complaint: Trauma Stated complaint: Fall Time Seen by Provider: 06/25/24 17:54 History of Present Illness HPI narrative: 69-year-old woman who lives alone has a history of depression anxiety, PTSD, hyperlipidemia, hypertension who was brought in by medics has some blood over her head small wound to the right forehead apparently fell last night does not remember the details complaining of left lower rib pain, abdominal pain that she attributes to colitis, continued entire left side hyperesthesia that is chronic and felt to be radicular in nature. On arrival she was weak somewhat confused resistant to coming into the emergency department, she had soiled herself. Patient states she is fine does complain of left shoulder and arm pain as a chronic problem and abdominal pain that she attributes to her colitis. She is not forthcoming with answers to additional review of systems questions Related Data Home Medications Medication Instructions Recorded Confirmed bupropion HCl 150 mg 24 hr tablet, 150 mg PO QAM 04/09/24 06/17/24 extended release carvedilol 25 mg tablet 12.5 mg PO BID 04/09/24 06/17/24 dextroamphetamine-amphetamine 30 0.5 tab PO BID 04/09/24 06/17/24 mg tablet losartan 50 mg tablet 50 mg PO BID 04/09/24 06/17/24 potassium chloride 20 mEq oral 20 meq PO BID 04/09/24 06/17/24 packet sertraline 50 mg tablet 75 - 100 mg PO DAILY 04/09/24 06/17/24 trazodone 50 mg tablet 50 mg PO ONCE PM 04/09/24 06/17/24 Previous Rx's Medication Instructions Recorded cefdinir 300 mg capsule 300 mg PO BID #10 caps 03/21/24 baclofen 5 mg tablet 5 mg PO TID #60 tabs 06/17/24 meloxicam 15 mg tablet 15 mg PO DAILY #90 tabs 06/17/24 Allergies Allergy/AdvReac Type Severity Reaction Status Date / Time No Known Drug Allergies Allergy Unverified 06/17/24 14:44 Review of Systems Review of Systems Narrative: Pertinent positive and negative findings as per HPI Patient History Medical History Osteoarthritis Osteoporosis PTSD (post-traumatic stress disorder) Depression Anxiety Sleep disturbances Hyperlipidemia Hypertension Social History Smoking Status: Never smoker Smoking Status: Never smoker Exam Narrative Exam Narrative: General: small laceration with dried blood to the right side of the head, no abrasions or contusions, seems slightly confused globally weak HEENT: dry mucous membranes, normal sclera with reactive pupils, small laceration right side of the forehead/hairline Neck: tenderness along the entire neck and into the left trapezius patient states this is chronic Respiratory: Lungs are clear to auscultation, no wheezing no rales no rhonchi. Full and symmetrical air movement Cardiac: Regular rate and rhythm no murmurs no bruits chest: Tender to palpation along the left ribs mid axillary line, no obvious bruising or subcutaneous air appreciated Abdomen: Soft, mild diffuse tenderness without rebound or guarding. No flank pain Skin: pale but otherwise warm and dry Neurologic: confused, retrograde amnesia, pain down her arm from her neck with Extremities: No trauma, well perfused Psych: subdued, flat affect, poor eye contact Initial Vital Signs Initial Vital Signs: Vital Signs Temperature 98.5 F 06/25/24 17:52 Pulse Rate 90 06/25/24 17:52 Respiratory Rate 18 06/25/24 17:52 Blood Pressure 161/91 H 06/25/24 17:52 Pulse Oximetry 98 06/25/24 17:52 Oxygen Delivery Method Room Air 06/25/24 17:52 Course Orders Ordered: ED Orders 06/25/24 19:57 Blood Culture Stat Discontinued Medications Acetaminophen (Acetaminophen 325 Mg Tablet) 975 mg PO NOW ONE Stop: 06/25/24 19:14 Last Admin: 06/25/24 19:17 Dose: 975 mg Documented By: RAIN Sodium Chloride (Normal Saline 0.9%) 1,000 mls @ 1,000 mls/hr IV BOLUS ONE Stop: 06/25/24 18:57 Last Infusion: 06/25/24 20:12 Dose: Infused Documented By: Admin: 06/25/24 19:04 Dose: 1,000 mls/hr Documented By: RAIN Ondansetron HCl (Ondansetron 4 Mg/2 Ml Inj) 4 mg IV NOW ONE Stop: 06/25/24 17:59 Last Admin: 06/25/24 19:04 Dose: 4 mg Documented By: RAIN Vital Signs Vital signs: Vital Signs - 8 hr 06/25/24 21:00 Temperature 97.8 F Pulse Rate 80 Respiratory Rate 18 Blood Pressure 134/80 Pulse Oximetry 96 Oxygen Delivery Method Room Air Medical Decision Making Lab Data 06/25/24 18:10 06/25/24 18:10 Labs: Lab Results 06/25/24 06/25/24 Range/Units 18:00 18:10 WBC 7.1 (4.5-11.0) X10^3/uL RBC 4.31 (4.0-5.2) X10^6/uL Hgb 14.3 (12.0-16.0) g/dL Hct 42.9 (36-46) % MCV 99.6 (80-100) fL MCH 33.3 (26-34) PG MCHC 33.4 (30-36) % RDW 13.8 (11.6-14.8) % Plt Count 270 (150-400) X10^3/uL Neut % (Auto) 57.4 (50-75) % Lymph % (Auto) 32.7 (25-40) % Giles % (Auto) 7.7 (3-14) % Eos % (Auto) 1.8 L (2-4) % Baso % (Auto) 0.4 (0-2) % Neut # (Auto) 4100 (5866-2786) /uL Lymph # (Auto) 2300 (6515-9763) /uL Giles # (Auto) 500 (0-900) /uL Eos # (Auto) 100 (0-450) /uL Baso # (Auto) 0 (0-100) /uL Sodium 135 L (137-145) mmol/L Potassium 3.7 (3.4-5.1) mmol/L Chloride 101 (98-107) mmol/L Carbon Dioxide 26 (22-32) mmol/L BUN 16 (7-17) mg/dL Creatinine 1.03 (0.52-1.04) mg/dL Estimated GFR 58 L (>60) mL/min BUN/Creatinine Ratio 15.5 (6-22) Glucose 109 (80-110) mg/dL Lactate 2.0 (0.7-2.1) mmol/L Calcium 9.9 (8.4-10.2) mg/dL Magnesium 1.8 (1.6-2.3) mg/dL Total Bilirubin 0.7 (0.2-1.3) mg/dL AST 36 (14-36) IU/L ALT 40 H (<35) IU/L Alkaline Phosphatase 56 (38-126) U/L Troponin I < 0.012 (0.01-0.034) ng/mL NT-Pro-B Natriuret Pep 149 H (<125) pg/mL Total Protein 7.2 (6.3-8.2) g/dL Albumin 4.4 (3.5-5.0) g/dL Globulin 2.8 (1.7-4.1) g/dL Albumin/Globulin Ratio 1.6 (1.0-2.8) Lipase 89 (23-300) U/L Procalcitonin 0.041 (<0.5) ng/mL SARS-CoV-2 (PCR) Negative (Negative) Influenza A (RT-PCR) Flu a negative (NEGATIVE) Influenza B (RT-PCR) Flu b negative (NEGATIVE) RSV (PCR) Negative (Negative) Point of Care Testing Glucose POC 131 Point of care testing: Point of Care Testing Glucose POC [address] scan - head: Radiologist's Impression: COMPARISON: [facility], CT, CT HEAD/BRAIN WO [facility], 06/04/2024, 15:32. FINDINGS: Image quality: Diagnostic. CSF spaces: Basal cisterns are patent. No extra-axial fluid collections. Ventricles are normal in size and shape. Brain: No midline shift. No intracranial masses or hemorrhage. No area of hypodensity in a large vascular distribution to suggest acute infarction. Periventricular hypodensity consistent with chronic microvascular ischemic change. Age-related parenchymal loss. Skull and face: Calvarium and visualized facial bones are intact, without suspicious lesions. Sinuses: Visualized sinuses and mastoids are clear. IMPRESSION: No acute intracranial pathology. Dictated by: Morgan Nuñez M.D. on 06/25/2024 at 19:12 CT - cervical spine: Radiologist's Impression: COMPARISON: [facility], CT, CT CERVICAL SPINE WO [facility], 06/04/2024, 15:32. FINDINGS: Image quality: Excellent. Bones: No fractures or dislocations. Visualized superior ribs are intact. [id number] degenerative changes. Soft tissues: Prevertebral soft tissues are normal in thickness. No paravertebral hematomas. No apical pneumothoraces. IMPRESSION: No displaced fracture or traumatic subluxation. Dictated by: Morgan Nuñez M.D. on 06/25/2024 at 19:15 trauma chest abdomen pelvis: Radiologist's Impression: COMPARISON: [facility], CT, CT CERVICAL SPINE WO [facility], 06/25/2024, 18:06. FINDINGS Image Quality: Diagnostic. Chest: Lungs and pleura: No pneumothorax or hemothorax. No pulmonary contusions or lacerations. No solid pulmonary nodule requiring follow-up. Mild emphysematous change. Vascular: No dissection or pseudoaneurysm. No incidental central pulmonary embolism. No hemopericardium. Mediastinum: No mediastinum hematoma. No suspicious mass or lymph nodes. No actionable thyroid nodules. Chest wall: Intact clavicles, scapula, and glenohumeral joint. No displaced rib fractures. Thoracic spine: No acute fracture or traumatic subluxation. ABDOMEN and PELVIS: Liver: No laceration or capsular hematoma. Gallbladder: Unremarkable. Biliary system: Non-dilated. Pancreas: Unremarkable. Spleen: No laceration or capsular hematoma. Adrenals: No suspicious nodules. Kidneys: No contrast extravasation or hydronephrosis. No solid masses. Nonobstructing left kidney stone measuring 0.8 cm. Vessels and lymph nodes: No pathology lymph nodes by size criteria. No dissection or aneurysm. No retroperitoneal hematoma. Bowel and peritoneum: No suspicious region of mesenteric hemorrhage or hemoperitoneum. No bowel obstruction. Normal appendix. Pelvis: Unremarkable bladder. Retroverted uterus. Pelvic ring and femurs: No pelvic ring disruption. No hip fractures. Lumbar spine: No acute fracture or traumatic subluxation. Abdominal wall: No drainable fluid collection or hematoma. Mass or cyst at the right labia majora measuring 2.7 cm, (). IMPRESSION: 1. No acute traumatic injury to the chest, abdomen, or pelvis. 2. Nonobstructing left kidney stone measuring 0.8 cm. 3. Mass or cyst at the right labia majora measuring 2.7 cm. -Recommend clinical correlation. This could be further evaluated with MRI pelvis with IV contrast (gynecologic protocol). Dictated by: Morgan Nuñez M.D. on 06/25/2024 at 19:18 MDM Narrative Medical decision making narrative: CC:Fall sometime yesterday, confused, small facial laceration, increased left arm pain, left rib pain Complicating co-morbidities: patient lives independently, left-sided radicular neck pain, PTSD, depression, hypertension, hyperlipidemia Data collected from: patient Social determinants of health that may influence the patients condition: d epression, isolation Medical records reviewed: primary care notes, recent ER notes reviewed Differential considered: intracranial hemorrhage, overdose, viral syndrome, sepsis, acute coronary syndrome Exam documented above, pertinent findings include: small laceration to the top of her forehead that does not require additional repair. Tender left lower ribs mid axillary line. Diffuse abdominal tenderness. Affect is quite flat Lab Test results independently reviewed as above. Pertinent findings: CBC is unremarkable chemistries are reassuring troponin is not elevated proBNP is not elevated procalcitonin is within normal limits serology for COVID, influenza and RSV are negative Imaging studies independently reviewed: CT scan of the head does not show intracranial hemorrhage or fractures CT of the cervical spine does not show acute injury CT scan of the chest abdomen and pelvis does not suggest rib fracture or other injury Treatments: soft cervical collar placed for comfort. Sling placed to support the left arm to try and reduce some of the radicular pain down the left arm Discussion: patient has been seeing her primary care physician regarding the intractable cervical spine pain. She does have referrals coming up. She states that it is 30/10 she has not been sleeping. She took a muscle relaxer yesterday but does not believe that it had anything to do with her syncopal episode and retrograde amnesia. She has not been taking additional pain medications. She states that she would not have come in today unless the over cdl flatbed truck driver head seen her in the the house with blood all over her head. She notes that she had a similar episode about a year ago with negative workup at that time. With the additional evaluation she is much more alert, appropriate, good eye contact with extensive details now available. She states that steroids make her crazy, offered her a soft cervical collar for neck support and a sling for comfort. We will help her arrange a CT back home. At this point I do not have an explanation for her episode yesterday but actually I do suspect it was related to her muscle relaxer which she has not intending to use. She has a appropriate follow up for the left radicular pain. At this point I believe she is safe for discharge Discharge Plan Departure Patient Disposition: Home Clinical Impression: Acute cervical radiculopathy Syncope Qualifiers: Syncope type: unspecified Qualified Code(s): R55 - Syncope and collapse Contusion of head Qualifiers: Encounter type: initial encounter Contusion of head detail: other part of head Qualified Code(s): S00.83XA - Contusion of other part of head, initial encounter Instructions: DI for Cervical Radiculopathy Activity Restrictions/Additional Instructions: I am sorry that you are suffering so much with this neck pain radiating into your arm. I am not entirely sure why you passed out yesterday and had a small abrasion to your forehead with quite a bit of blood. I am glad that the [employer] cdl flatbed truck driver noticed and called paramedics. Your workup in the emergency department is reassuring. The cut on your head does not need stitches. There was no bleeding inside your head, there was no new fractures to your neck and in looking at your chest abdomen and pelvis there is no significant abnormalities that need additional workup at this time I would recommend that you do not use the baclofen prescribed yesterday. I am concerned that this may have contributed to this episode. I have given you a soft neck collar. If this is helpful in controlling your pain you can use it as needed. If it is not helpful you do not need it I have also given you a sling to see if preventing your arm from hanging and pulling on the side of your neck can also help with pain control if you find that you are getting worse or having new symptoms, please feel free to return to the ER Prescriptions: No Action cefdinir 300 mg capsule 300 mg PO BID Qty: 10 0RF trazodone 50 mg tablet 50 mg PO ONCE PM carvedilol 25 mg tablet 12.5 mg PO BID losartan 50 mg tablet 50 mg PO BID bupropion HCl 150 mg tablet extended release 24 hr 150 mg PO QAM sertraline 50 mg tablet 75 - 100 mg PO DAILY dextroamphetamine-amphetamine 30 mg tablet 0.5 tab PO BID potassium chloride 20 mEq packet 20 meq PO BID meloxicam 15 mg tablet 15 mg PO DAILY Qty: 90 0RF baclofen 5 mg tablet 5 mg PO TID MDD 30mg Qty: 60 0RF Rx Instructions: Take 5 to 10 mg three times daily as needed. Referrals: Ingrid Cummings FNP-BC [Primary Care Provider] - Stand Alone Forms: Patient Portal/API/Survey
[2024-06-25 18:33] LABS: Alanine Aminotransferase 40 IU/L (<35); Albumin 4.4 g/dL (3.5-5.0); Albumin Globulin Ratio 1.6 (1.0-2.8); Alkaline Phosphatase 56 U/L (38-126); Aspartate Aminotransferase 36 IU/L (14-36); BUN Creatinine Ratio 15.5 (6-22); Bilirubin Total 0.7 mg/dL (0.2-1.3); Blood Urea Nitrogen 16 mg/dL (7-17); Calcium 9.9 mg/dL (8.4-10.2); Carbon Dioxide 26 mmol/L (22-32); Chloride 101 mmol/L (98-107); Estimated Glomerular Filt Rate 58 mL/min (>60); Globulin 2.8 g/dL (1.7-4.1); Glucose 109 mg/dL (80-110); HEMOLYSIS < 15 (0-50); Lipase 89 U/L (23-300); Magnesium 1.8 mg/dL (1.6-2.3); Potassium 3.7 mmol/L (3.4-5.1); Sodium 135 mmol/L (137-145); Total Protein 7.2 g/dL (6.3-8.2)
[2024-06-25 18:42] LABS: NT-proBNP (BNP-Adult 18+) 149 pg/mL (<125)
[2024-06-25 18:44] LABS: Troponin I < 0.012 ng/mL (0.01-0.034)
[2024-06-25 18:50] LABS: Procalcitonin 0.041 ng/mL (<0.5)
[2024-06-25] MEDS: SODIUM CHLORIDE 0.9% 1,000 ML 1000 ML IV (19:04)
[2024-06-25] MEDS: ONDANSETRON 4 MG/2 ML INJ IV (19:04)
[2024-06-25 19:06] LABS: Add Manual Diff / Slide Review NO; Basophils Absolute Auto 0 /uL (0-100); Basophils Percent Auto 0.4 % (0-2); Eosinophils Absolute Auto 100 /uL (0-450); Eosinophils Percent Auto 1.8 % (2-4); Hematocrit 42.9 % (36-46); Hemoglobin 14.3 g/dL (12.0-16.0); Lymphocytes Absolute Auto 2300 /uL (1100-4500); Lymphocytes Percent Auto 32.7 % (25-40); Mean Corpuscular HGB Conc 33.4 % (30-36); Mean Corpuscular Hemoglobin 33.3 PG (26-34); Mean Corpuscular Volume 99.6 fL (80-100); Monocytes Absolute Auto 500 /uL (0-900); Monocytes Percent Auto 7.7 % (3-14); Neutrophils Absolute Auto 4100 /uL (1500-7000); Neutrophils Percent Auto 57.4 % (50-75); Platelet Count 270 X10^3/uL (150-400); Red Blood Cell Count 4.31 X10^6/uL (4.0-5.2); Red Cell Distribution Width 13.8 % (11.6-14.8); White Blood Cell Count 7.1 X10^3/uL (4.5-11.0)
[2024-06-25 19:06] LABS: Influenza A - CEPHEID Flu A NEGATIVE (NEGATIVE); Influenza B - CEPHEID Flu B NEGATIVE (NEGATIVE); Respiratory Syncytial Virus Negative (Negative)
[2024-06-25 19:17] LABS: COVID-19 CEPHEID 4-PLEX PCR Negative (Negative)
[2024-06-25] MEDS: ACETAMINOPHEN 325 MG TABLET 975 MG PO (19:17)
== END 2024-06-25 21:10 | disposition home or self-care (01) ==
PROVIDERS: Emergency Provider Emergency Medicine; PCP Nurse Practitioner Family
DX: S01.81XA Laceration without foreign body of other part of head, initial encounter (principal); R55 Syncope and collapse; M54.12 Radiculopathy, cervical region; R41.2 Retrograde amnesia; M79.602 Pain in left arm; R07.89 Other chest pain; I10 Essential (primary) hypertension; E78.5 Hyperlipidemia, unspecified; F43.10 Post-traumatic stress disorder, unspecified; F32.A Depression, unspecified; W19.XXXA Unspecified fall, initial encounter
CPT/HCPCS: 0241U; 36415; 70450; 71275; 72125; 74177; 80053; 83605; 83690; 83735; 83880; 84145; 84484; 85025; 87040; 96361; 96374; 99284; J2405; Q9967

== ENCOUNTER → 2024-07-17 10:39 | Outpatient (CLI) | payer MEDICARE, OTHER, SELFPAY ==
--- NOTE | 2024-07-17 10:40 | DI.MRI.S_ITS ---
PROCEDURE: MR SHOULDER LT WO CON INDICATIONS: Cervical pain, left extremity radiculopathy TECHNIQUE: Noncontrast oblique coronal T2 fast spin echo with fat saturation, oblique sagittal T1 spin echo and T2 fast spin echo with fat saturation, axial T1 spin echo and T2 fast spin echo with fat saturation through the shoulder. COMPARISON: None. FINDINGS: Image quality: Excellent. Rotator cuff: Full-thickness tearing of the supraspinatus tendon and the anterior fibers of the infraspinatus tendon at their distal insertions measuring approximately the 1.9 cm in anterior-posterior dimension with up to 3.8 cm of proximal tendon retraction. There is very mild atrophy and fatty infiltration of the supraspinatus and infraspinatus muscles. Teres minor tendon remains intact. Moderate subscapularis tendinosis with low-grade partial intrasubstance tearing at the distal insertion. Bones and bursae: No acute trabecular bone injury or fracture. Small chronic traction cystic changes are seen at the posterior superior humeral head. Humeral head is high riding with narrowing of the acromial humeral interval. Moderate partial-thickness cartilage irregularity in the glenohumeral joint with small marginal osteophytes. Moderate degenerative changes at the acromioclavicular joint with subchondral cystic changes and marginal osteophytes. Small amount of fluid in the subacromial/subdeltoid bursa communicates with the glenohumeral joint space. Trace subcoracoid bursal fluid. Capsule and soft tissues: Diffuse labral degeneration with chronic degenerative tearing of the superior and anterior labrum. Partial intrasubstance tearing of the proximal biceps long head tendon superimposed on moderate to severe tendinosis. Glenohumeral ligaments appear to be intact. IMPRESSION: 1. Full-thickness tearing of the supraspinatus tendon and the anterior fibers of the infraspinatus tendon at their distal insertions measuring approximately the 1.9 cm in anterior-posterior dimension with up to 3.8 cm of proximal tendon retraction. Mild atrophy and fatty infiltration of the supraspinatus and infraspinatus muscles. Humeral head is high riding with narrowing of the acromial humeral interval. Findings suggest likely chronic tearing. 2. Moderate subscapularis tendinosis with superimposed focal low-grade partial intrasubstance tearing at the distal insertion. 3. Partial intrasubstance tearing and moderate to severe tendinosis of the proximal biceps long head tendon. 4. Diffuse labral degeneration with chronic degenerative tearing of the superior and anterior labrum. Grade 2-3 chondromalacia in the glenohumeral joint. 5. Moderate acromioclavicular joint osteoarthrosis. 6. Small subacromial/subdeltoid bursal effusion communicates with the glenohumeral joint space. Approved by: Haresh Ramirez M.D. on 07/17/2024 at 12:35
--- NOTE | 2024-07-17 10:40 | DI.MRI.S_ITS ---
PROCEDURE: MR CERVICAL SPINE WO CON INDICATIONS: CERVICAL SPINE PAIN TECHNIQUE: Noncontrast sagittal T1 spin echo and T2 fast spin echo, sagittal STIR, foraminal oblique sagittal T2 fast spin echo, and axial gradient echo or T2 fast spin echo through the cervical spine. COMPARISON: [facility], CT, CT CERVICAL SPINE WO CON, 06/25/2024, 18:06. FINDINGS: Image quality: Excellent Straightening of cervical spine. Mild anterolisthesis C2 on C3, C4 on C5, C5 on C6, and C7 on T1. Vertebral body height of the cervical spine are well maintained. Multilevel disc desiccation disc bulge. Marrow edema of the right C3-4 facet, degenerative. No suspicious marrow replacing lesion. Cord signal: Unremarkable. Right neural foraminal stenosis: Moderate at C3-4, moderate at C4-5, mild at C5-6 and C6-7. Left neural foraminal stenosis: Moderate at C3-4, mild at C4-5, C5-6, C6-7. Axial images: C2-3: No central canal stenosis. Mild bilateral facet arthropathy. C3-4: Posterior disc osteophyte complex. Mild central canal stenosis. Mild bilateral facet arthropathy. C4-5: Posterior disc osteophyte complex. Moderate right, mild left facet arthropathy. Moderate central canal stenosis. C5-6: Posterior disc osteophyte complex. Mild central canal stenosis. C6-7: Posterior disc osteophyte complex. No central canal stenosis. C7 to T1: Large posterior disc osteophyte complex. [id number] the unremarkable central canal stenosis. Other soft tissue findings: None. IMPRESSION: 1. Multilevel degenerative changes cervical spine, most pronounced at C4-5, where there is moderate central canal stenosis, and moderate right, and mild left neural foraminal stenosis. 2. Additional mild to moderate central canal stenosis at C7-T1. Dictated by: Enedina Blue M.D. on 07/17/2024 at 17:12 Approved by: Enedina Blue M.D. on 07/17/2024 at 17:22
== END ==
LOC: MRI 10:40
PROVIDERS: PCP Nurse Practitioner Family; Referring Provider Nurse Practitioner Family; Visit Provider Nurse Practitioner Family
DX: S43.432A Superior glenoid labrum lesion of left shoulder, initial encounter (principal); M75.122 Complete rotator cuff tear or rupture of left shoulder, not specified as traumatic; M62.512 Muscle wasting and atrophy, not elsewhere classified, left shoulder; M19.012 Primary osteoarthritis, left shoulder; M25.412 Effusion, left shoulder; M43.12 Spondylolisthesis, cervical region; M47.22 Other spondylosis with radiculopathy, cervical region; M48.02 Spinal stenosis, cervical region; M54.2 Cervicalgia
CPT/HCPCS: 72141; 73221

== ENCOUNTER → 2024-08-03 16:00 | Outpatient (CLI) | payer MEDICARE, OTHER, SELFPAY ==
--- NOTE | 2024-08-03 16:03 | DI.RAD.S_ITS ---
PROCEDURE: XR ANKLE RT MIN 3V INDICATIONS: Right Ankle Pain TECHNIQUE: 3 views of the ankle were acquired. COMPARISON: None. FINDINGS: Bones: Single screw is seen in the lateral malleolus, ostensibly transfixing an old fracture, is solidly unified and anatomically aligned. There are 2 screws extending through the posterior calcaneus. Fracture or osteotomy is solidly unified and anatomically aligned. Os trigonum noted Tibiotalar and talocalcaneal joints: Normal in width and alignment without arthritic change. Soft tissues: No soft tissue swelling, calcification or mass. IMPRESSION: Chronic findings as described Dictated by: Peter Jaquez M.D. on 08/04/2024 at 11:08 Approved by: Peter Jaquez M.D. on 08/04/2024 at 11:09
[2024-08-03 17:08] LABS: HEMOLYSIS < 15 (0-50); Iron 77 ug/dL (37-170)
[2024-08-03 17:09] LABS: Cholesterol 273 mg/dL (140-199); Triglycerides 161 mg/dL (35-150)
[2024-08-03 17:19] LABS: Percent Iron Saturation 23 % (15-50); Total Iron Binding Capacity 332 ug/dL (265-497); Transferrin 311 mg/dL (206-381)
[2024-08-03 17:22] LABS: HDL Cholesterol 107 mg/dL (40-60); LDL Cholesterol Calculated 134 mg/dL (<100)
[2024-08-03 17:27] LABS: Vitamin D 25 Hydroxy (D3) 36.4 ng/mL (30.0-100.0)
[2024-08-03 17:40] LABS: TSH w/ Reflex to FT4 0.68 uIU/mL (0.47-4.68)
== END ==
PROVIDERS: PCP Internal Medicine; Referring Provider Nurse Practitioner Family; Visit Provider Nurse Practitioner Family
DX: M25.571 Pain in right ankle and joints of right foot (principal); I10 Essential (primary) hypertension; E78.5 Hyperlipidemia, unspecified; M81.0 Age-related osteoporosis without current pathological fracture; F41.9 Anxiety disorder, unspecified; G47.9 Sleep disorder, unspecified
CPT/HCPCS: 36415; 73610; 80061; 82306; 83540; 83550; 84443

== ENCOUNTER → 2024-08-13 14:37 | Outpatient (CLI) | payer MEDICARE, OTHER, SELFPAY ==
--- NOTE | 2024-08-13 14:43 | DI.ECHO.S_ITS ---
[facility] : : [address] : : [place] : : [id number] : : Phone: [phone] Echocardiogram Report + + :Name: CODY DONALD Study Date: 08/13/2024 Height: 63.5 in: :[facility] ReadingLocation: Weight: 130 lb : : Gender: Female BSA: 1.6 m2 : :: 1955 Age: 69 yrs BP: 144/95 mmHg: :Reason For Study: ESSENTIAL HYPERTENSION : :Ordering Physician: JIA, : :CARLOS Performed By: Denisse Jay : :Referring: CARLOS RO : + + Interpretation Summary The left ventricle is normal in size and wall thickness. The left ventricular ejection fraction is normal. The ejection fraction is estimated to be 60-65%. The right ventricle is normal size. The right ventricular systolic function is normal. There is mild to moderate mitral regurgitation. There is mild tricuspid regurgitation. The right ventricular systolic pressure is estimated to be at least 30 mmHg based on an estimated right atrial pressure of 3 mm Hg. The ascending aorta is mildly enlarged. BP: 144/95 mmHg Procedure: A two-dimensional transthoracic echocardiogram with color flow and Doppler was performed. The study quality was technically adequate. There is no prior echocardiogram noted for this patient. The patient was in sinus bradycardia with heart rates between 54-60 bpm during the exam. Left Ventricle: The left ventricle is normal in size and wall thickness. There is no thrombus. The left ventricular ejection fraction is normal. The ejection fraction is estimated to be 60-65%. There are no focal wall motion abnormalities. Diastolic parameters suggest a relaxation abnormality of the left ventricle, consistent with probable normal filling pressures. Right Ventricle: The right ventricle is normal size. The right ventricular systolic function is normal. Atria: The left atrium is mildly dilated. Right atrial size is normal. There is no Doppler evidence for an interatrial shunt. Mitral Valve: The mitral valve leaflets appear to open well. The mitral valve leaflets appear mildly thickened, but open well. There is mild to moderate mitral regurgitation. Aortic Valve: The aortic valve is trileaflet. The aortic valve opens well. There is no aortic valve stenosis. No aortic regurgitation is present. Tricuspid Valve: The tricuspid valve leaflets are thin and pliable. There is mild tricuspid regurgitation. The right ventricular systolic pressure is estimated to be at least 30 mmHg based on an estimated right atrial pressure of 3 mm Hg. Pulmonic Valve: The pulmonic valve leaflets are thin and pliable; valve motion is normal. There is mild pulmonic regurgitation. Great Vessels: The aortic root is normal size. The ascending aorta is mildly enlarged. The IVC is of normal diameter and collapses greater than 50% with a sniff. This suggests a low right atrial pressure of 3 mm Hg. Pericardium/ Pleura There is no pericardial effusion. There is no pleural effusion. MMode/2D Measurements & Calculations LVIDd: 4.9 cm LVOT diam: 2.0 cm LVIDs: 3.6 cm Ao root diam: 3.6 cm FS: 26.9 % asc Aorta Diam: 3.8 cm EPSS: 0.38 cm Ao Arch Diam (Prox Trans): 3.3 cm IVSd: 0.69 cm LVPWd: 0.80 cm LV reyez. diameter/BSA (cm/m^2): 3.0 LV sys. diameter/BSA (cm/m^2): 2.2 LA A2 area: 20.7 cm2 RA long axis: 4.8 cm LA A4 area: 16.7 cm2 RA area: 12.3 cm2 LA length (vol): 4.8 cm RA vol: 26.4 ml LA vol: 60.5 ml RA : 16.3 ml/m2 LA vol index: 37.3 ml/m2 IVC diam: 1.2 cm RVD1 (basal): 2.7 cm RVD2 (mid): 2.2 cm Doppler Measurements & Calculations Ao V2 max: 133.7 cm/sec LVOT Max Vasu: 94.7 cm/sec Ao V2 mean: 90.4 cm/sec LV V1 max P.6 mmHg Ao max P.1 mmHg LV V1 VTI: 20.3 cm Ao mean P.6 mmHg SHERI(I,D): 2.2 cm2 Ao V2 VTI: 27.3 cm SHERI(V,D): 2.1 cm2 sev ratio: 0.74 SHERI indexed to BSA (cm^2/m^2): 1.4 MV E max vasu: 55.2 cm/sec TR max vasu: 258.5 cm/sec MV A max vasu: 63.1 cm/sec TR max P.7 mmHg MV E/A: 0.88 PA V2 max: 59.0 cm/sec Med Peak E' Vasu: 4.9 cm/sec PA V2 mean: 41.6 cm/sec E/E' med: 11.4 PA mean P.76 mmHg Lat Peak E' Vasu: 8.2 cm/sec PA pr(Accel): 36.6 mmHg E/E' lat: 6.7 E/e' average: 9.0 MV dec time: 0.25 sec SV(BENJAMIN): 60.8 ml Reading Physician:[id number] PM
== END ==
PROVIDERS: PCP Internal Medicine; Referring Provider Internal Medicine; Visit Provider Internal Medicine Cardiovascular Disease
DX: R00.1 Bradycardia, unspecified (principal); I08.1 Rheumatic disorders of both mitral and tricuspid valves; I77.810 Thoracic aortic ectasia; I10 Essential (primary) hypertension
CPT/HCPCS: 36415; 82088; 83835; 93306

== ENCOUNTER → 2024-11-03 16:04 | Outpatient (CLI) | payer MEDICARE, OTHER, SELFPAY ==
--- NOTE | 2024-11-03 16:08 | DI.RAD.S_ITS ---
PROCEDURE: XR CERVICAL SPINE 4V OR 5V INDICATIONS: NECK PAIN TECHNIQUE: 5 views of the cervical spine acquired. COMPARISON: None. FINDINGS: Bones: No fractures or dislocations to the T1 level. Loss of disc height, degenerative endplate changes and bilateral facet hypertrophic changes are noted throughout cervical spine. 4 millimeter anterolisthesis of C4 on C5 is seen. Oblique images demonstrate bilateral bony foraminal stenosis at C3-4 and C5-6 levels. Soft tissues: No prevertebral soft tissue swelling. IMPRESSION: Spondylitic changes throughout cervical spine with suggestion of bilateral bony foraminal stenosis at C3-4 and C5-6 levels. Grade 1 anterolisthesis of C4 on C5. No acute fracture or dislocation. Dictated by: Eris Langford M.D. on 11/03/2024 at 16:52 Approved by: Eris Langford M.D. on 11/03/2024 at 16:53
--- NOTE | 2024-11-03 16:08 | DI.RAD.S_ITS ---
PROCEDURE: XR KNEE LT 3V INDICATIONS: LEFT KNEE PAIN TECHNIQUE: 3 views of the knee were acquired. COMPARISON: None. FINDINGS: Bones: No fractures or dislocations. Mild tricompartmental osteoarthritis is seen. No significant patellar subluxation. No suspicious bony lesions. Soft tissues: No joint effusion. No suspicious soft tissue calcifications. IMPRESSION: No acute left knee fracture or dislocation. No significant joint effusion. Mild tricompartmental osteoarthritis. Dictated by: Eris Langford M.D. on 11/03/2024 at 16:53 Approved by: Eris Langford M.D. on 11/03/2024 at 16:54
== END ==
LOC: RAD 16:07
PROVIDERS: PCP Internal Medicine; Referring Provider Physical Medicine & Rehabilitation; Visit Provider Physical Medicine & Rehabilitation
DX: M43.12 Spondylolisthesis, cervical region (principal); M48.02 Spinal stenosis, cervical region; M17.12 Unilateral primary osteoarthritis, left knee; M54.2 Cervicalgia; M25.562 Pain in left knee
CPT/HCPCS: 72050; 73562